=== PATIENT | male | born 1955 | race Caucasian/White ===

== ENCOUNTER 2024-12-20 13:29 | Outpatient (CLI) | payer OTHER ==
[~2024-12-20 13:29] MED LIST: Iopamidol 370 76% 100 ML VIAL ONE
[2024-12-20 13:57] LABS: Estimated GFR - POC 100.0
== END 2024-12-20 13:30 | disposition home or self-care (01) ==
LOC: CT 13:29
PROVIDERS: ATTEND Internal Medicine
DX: K57.30 Diverticulosis of large intestine without perforation or abscess without bleeding (principal); R10.32 Left lower quadrant pain; R19.7 Diarrhea, unspecified; R16.0 Hepatomegaly, not elsewhere classified; Z86.0101 Personal history of adenomatous and serrated colon polyps
CPT/HCPCS: 36415; 74177; 82565